=== PATIENT | male | born 1950 | race Two or more races ===

== ENCOUNTER 2023-03-31 14:22 | Emergency (ER) | payer MEDICARE, OTHER ==
[~2023-03-31] VITALS: Ht 162.6 cm; Wt 32.0 kg
[2023-03-31] MEDS ORDERED: SODIUM CHLORIDE 0.9% 1,000 ML IV ONE (15:00)
[2023-03-31 15:26] LABS: Basophils # (auto) 0.1 10 ^3/uL (0-0.2); Basophils % (auto) 1.7 % (0.0-2.0); Eosinophils # (auto) 0.1 10 ^3/uL (0-0.8); Eosinophils % (auto) 2.4 % (0.0-7.0); Hematocrit 25.8 % (41.0-53.0); Hemoglobin 7.7 g/dL (13.5-17.5); Lymphocytes # (auto) 0.5 10 ^3/uL (0.4-5.4); Lymphocytes % (auto) 8.9 % (10.0-50.0); Mean Corpuscular Hemoglobin 22.1 pg (28.0-32.0); Mean Corpuscular Hgb Conc. 29.7 g/dL (32.0-36.0); Mean Corpuscular Volume 74.6 fL (80.0-100.0); Monocytes # (auto) 0.7 10 ^3/uL (0-1.3); Monocytes % (auto) 12.5 % (0.0-12.0); Neutrophils % (auto) 74.5 % (37.0-80.0); Nucleated Red Blood Cells % 0.2 %; Red Blood Cells 3.46 10^6/uL (4.5-5.90); White Blood Cell 5.4 10^3/uL (4.4-10.8)
[2023-03-31 15:27] LABS: Red Cell Distribution Width 21.8 % (11.8-14.3)
[2023-03-31 15:44] LABS: Alkaline Phosphatase 291 U/L (46-116); Chloride 119 mmol/L (98-107)
[2023-03-31 15:45] LABS: Albumin 3.2 g/dL (3.2-4.8); Aspartate Aminotransferase 17 U/L (13-40); Bilirubin, Total < 0.2 mg/dL (0.2-1.0); Glucose 70 mg/dL (74-106); Magnesium 2.2 mg/dL (1.6-2.6); Sodium 151 mmol/L (136-145); Total Protein 5.4 g/dL (5.7-8.2)
[2023-03-31 15:52] VITALS: PULSE 72; RESP 19; O2SAT 92
[2023-03-31 15:52] LABS: BUN/Creatinine Ratio 21.7 (10.0-20.0)
[2023-03-31 15:53] LABS: Alanine Aminotransferase 9 U/L (7-40)
[2023-03-31 15:55] LABS: Blood Urea Nitrogen 156 mg/dL (9-23); Carbon Dioxide < 10 mmol/L (20-30)
[2023-03-31 16:02] LABS: Potassium 5.5 mmol/L (3.5-5.1)
[2023-03-31 17:22] LABS: Urine Bacteria FEW /hpf (None Seen); Urine Blood TRACE /uL (Negative); Urine Clarity Clear (Clear); Urine Color Yellow (Yellow); Urine Protein, UAD TRACE (Negative); Urine Specific Gravity 1.013 (1.001-1.035); Urine Urobilinogen Normal (Negative); Urine WBC 5 /hpf (0 - 3)
[2023-03-31 19:30] VITALS: PULSE 70; RESP 14; O2SAT 99
[2023-03-31] MEDS ORDERED: MORPHINE SULFATE INJ 2 MG/ml SYRG IV PRN (20:15)
[2023-04-01] MEDS ORDERED: fentaNYL CITRATE 100 MCG/2 ML VL IV ONE ×2 (00:45→03:00)
[2023-04-01] MEDS ORDERED: ONDANSETRON HCL 4 MG/2 ML VIAL IV ONE ×2 (00:45→03:15)
[2023-04-01] MEDS ORDERED: ONDANSETRON HCL 4 MG/2 ML VIAL IV PRN (06:15)
[2023-04-01] MEDS: fentaNYL CITRATE 100 MCG/2 ML VL IV PRN ×3 (07:57→16:24)
[2023-04-01 08:56] VITALS: PULSE 78; RESP 20; TEMP 98.2; O2SAT 97
[2023-04-01 16:20] VITALS: O2SAT 97
[2023-04-01 16:24] VITALS: BP 70/41; PULSE 76; RESP 16
== END 2023-04-01 16:30 | disposition home or self-care (01) ==
LOC: ER 14:22
DX: R62.7 Adult failure to thrive (principal); R06.02 Shortness of breath
CPT/HCPCS: 36415; 71045; 80053; 81001; 83735; 83880; 84484; 85025; 93005; 96361; 96374; 96375; 96376; 99285; J2270; J2405; J3010; J7030